=== PATIENT | male | born 1980 | race Caucasian/White ===

== ENCOUNTER → 2016-08-14 | Outpatient (CLI) | payer OTHER ==
[~2016-08-14] MED LIST: /CELE20CA PO; AUGM875T27 PO; BUSP30TA PO; CARV6.25 PO; CIPR500T89 PO; CYMB1CAP5 PO; CYMB60CA3 PO; HYDR-3713 PO; KLON0.5T PO; MELO15TA3 PO; METR1CAP PO; NAPR250T2 PO; NEUR600T PO; OXYCO5TA PO; TENO50TA PO; TRAZ100T2 PO; TYLE325T5 PO; TYLE650T30 PO; ULTR50TA PO; ZOLP-187 PO
== END | disposition home or self-care (01) ==
LOC: M SMT 11:25
PROVIDERS: ATTEND Obstetrics & Gynecology
DX: Z31.440 Encounter of male for testing for genetic disease carrier status for procreative management (principal)

== ENCOUNTER 2016-08-20 12:48 | Emergency (ER) | payer OTHER ==
--- NOTE | 2016-08-20 16:12 | EDDOCDS ---
Physician Documentation [facility] Name: Antonio Hernandez Age: 36 yrs Sex: Male : 1980 Arrival Date: 08/20/2016 Time: 12:48 Bed TR7 Private MD: Julisa Kingston A Disposition: 08/20/16 16:06 Discharged to Home/Self Care. Impression: Umbilical hernia with obstruction, without gangrene. - Condition is Stable. - Discharge Instructions: Hernia, Hernia Repair, Care After, [id number]. - Medication Reconciliation, Local Pharmacy Hours form. - Follow up: Raul Ortega MD; When: Call to arrange an appointment; Reason: Recheck today's complaints, Continuance of care. - Problem is new. - Symptoms are unchanged. Historical: - Allergies: no known allergies; - Home Meds: 1. alprazolam 0.5 mg Oral TbDL 1 tab daily PRN 2. buspirone 10 mg Oral tab 2 tabs 2 times per day 3. carvedilol 6.25 mg oral tab 1 tab 2 times per day 4. duloxetine 30 mg Oral cpDR 3 cap once daily 5. naproxen 500 mg Oral tab 1 tab every 12 hours - PMHx: Anxiety; Depression; Hypertension; PTSD; - PSHx: Arthroscopy, Knee- Right; Appendectomy; - Social history: Smoking status: Chewing Tobacco No barriers to communication noted, The patient speaks fluent Malagasy. - : The pt / caregiver states he / she is not on anticoagulants. Home medication list is obtained from the patient. - Exposure Risk Screening:: None identified. Vital Signs: 08/20 12:49 BP 166 / 105; Pulse 96; Resp 18 S; Temp 99.0(O); Pulse Ox 97% on R/A; Weight 131.54 kg gr2 / 290 lbs (R); Height 6 ft. 0 in. (182.88 cm) (R); Pain 3/10; 12:49 Body Mass Index 39.33 (131.54 kg, 182.88 cm) gr2 MDM: 16:11 Financial registration complete. gjb Signatures: Medina Garcia RN RN Juanita Llanos RN RN dls O'Hagan, Michael, PA PA mo1 Andre, Reyna gjb MTDD
--- NOTE | 2016-08-20 16:12 | EDDOCDS ---
Nurse's Notes [facility] Name: Antonio Hernandez Age: 36 yrs Sex: Male : 1980 Arrival Date: 08/20/2016 Time: 12:48 Bed TR7 Private MD: Julisa Kingston A Diagnosis: Umbilical hernia with obstruction, without gangrene Presentation: 08/20 13:01 Presenting complaint: Patient states: Pt presents with c/o possible umbilical hernia dls has noticed x 2 weeks today is painful. Risk factors: the patient reports not having a history of previous torsion. Adult Sepsis Screening: The patient does not have new or worsening altered mentation. Patient's respiratory rate is less than 22. Systolic blood pressure is greater than 100. Patient has a qSOFA score of 0- Negative Sepsis Screen. Suicide/Homicide risk assessment- the patient denies having any suicidal and/or homicidal ideations and does not present with any other emotional, behavioral or mental health complaints. Status: Patient is not a emergency service worker or dependent. Transition of care: patient was not received from another setting of care. 13:01 Acuity: [place] Level 4 dls 13:01 Method Of Arrival: Walkin/Carried/Asstd dls Triage Assessment: 13:03 General: Appears in no apparent distress, well developed, well nourished, well groomed, dls Behavior is cooperative. Pain: Pain currently is 2 out of 10 on a pain scale. HIV screening NA for this visit Offered previously. Historical: - Allergies: no known allergies; - Home Meds: 1. alprazolam 0.5 mg Oral TbDL 1 tab daily PRN 2. buspirone 10 mg Oral tab 2 tabs 2 times per day 3. carvedilol 6.25 mg oral tab 1 tab 2 times per day 4. duloxetine 30 mg Oral cpDR 3 cap once daily 5. naproxen 500 mg Oral tab 1 tab every 12 hours - PMHx: Anxiety; Depression; Hypertension; PTSD; - PSHx: Arthroscopy, Knee- Right; Appendectomy; - Social history: Smoking status: Chewing Tobacco No barriers to communication noted, The patient speaks fluent Ethiopian. - : The pt / caregiver states he / she is not on anticoagulants. Home medication list is obtained from the patient. - Exposure Risk Screening:: None identified. Vital Signs: 12:49 BP 166 / 105; Pulse 96; Resp 18 S; Temp 99.0(O); Pulse Ox 97% on R/A; Weight 131.54 kg gr2 (R); Height 6 ft. 0 in. (182.88 cm) (R); Pain 3/10; 12:49 Body Mass Index 39.33 (131.54 kg, 182.88 cm) gr2 Vitals: 12:49 Log In Time: August 20, 2016 at 12:49. gr2 ED Course: 12:49 Patient visited by Drea Landin. gr2 12:49 Julisa Kingston is Private Physician. gr2 12:49 Patient moved to Waiting gr2 12:51 Patient visited by Drea Landin. gr2 12:51 Patient moved to Pre RCE gr2 13:02 Triage Initiated dls 15:16 Patient moved to Triage 3 kcs 15:18 Patient visited by Enid Garcia RN. mk4 15:58 Hardik Saunders PA is PHCP. mo1 15:59 Arturo Du MD is Attending Physician. mo1 16:01 Patient visited by Hardik Saunders PA. mo1 16:06 Raul Ortega MD is Referral Physician. mo1 16:09 Patient moved to TR7 mk4 Order Results: There are currently no results for this order. Outcome: 16:06 Discharge ordered by Provider. mo1 16:12 Patient left the ED. kcs Signatures: Medina Garcia RN RN kcs Scott, Debra, RN RN [facility] Drea Landin gr2 Hardik Saunders PA PA mo1 Enid Garcia RN RN 4 MTDD
--- NOTE | 2016-08-22 17:13 | EDDOCDS ---
Nurse's Notes [facility] Name: Antonio Hernandez Age: 36 yrs Sex: Male : 1980 Arrival Date: 08/20/2016 Time: 12:48 Bed TR7 Private MD: Julisa Kingston A Diagnosis: Umbilical hernia with obstruction, without gangrene Presentation: 08/20 13:01 Presenting complaint: Patient states: Pt presents with c/o possible umbilical hernia dls has noticed x 2 weeks today is painful. Risk factors: the patient reports not having a history of previous torsion. Adult Sepsis Screening: The patient does not have new or worsening altered mentation. Patient's respiratory rate is less than 22. Systolic blood pressure is greater than 100. Patient has a qSOFA score of 0- Negative Sepsis Screen. Suicide/Homicide risk assessment- the patient denies having any suicidal and/or homicidal ideations and does not present with any other emotional, behavioral or mental health complaints. Status: Patient is not a pharmacy service associate or dependent. Transition of care: patient was not received from another setting of care. 13:01 Acuity: [place] Level 4 dls 13:01 Method Of Arrival: Walkin/Carried/Asstd dls Triage Assessment: 13:03 General: Appears in no apparent distress, well developed, well nourished, well groomed, dls Behavior is cooperative. Pain: Pain currently is 2 out of 10 on a pain scale. HIV screening NA for this visit Offered previously. Historical: - Allergies: no known allergies; - Home Meds: 1. alprazolam 0.5 mg Oral TbDL 1 tab daily PRN 2. buspirone 10 mg Oral tab 2 tabs 2 times per day 3. carvedilol 6.25 mg oral tab 1 tab 2 times per day 4. duloxetine 30 mg Oral cpDR 3 cap once daily 5. naproxen 500 mg Oral tab 1 tab every 12 hours - PMHx: Anxiety; Depression; Hypertension; PTSD; - PSHx: Arthroscopy, Knee- Right; Appendectomy; - Social history: Smoking status: Chewing Tobacco No barriers to communication noted, The patient speaks fluent Indian. - Family history: Not pertinent. - : The pt / caregiver states he / she is not on anticoagulants. Home medication list is obtained from the patient. - Exposure Risk Screening:: None identified. Screenin:10 Screening information is obtained from prior medical records. Fall risk: No risks kcs identified. Assistance ADL's: requires no assistance with activities of daily living. Abuse/DV Screen: The patient / caregiver reports he/she is: not in a situation that causes fear, pain or injury. Nutritional screening: No deficits noted. Advance Directives: Currently, there is no health care proxy. home support is adequate. Assessment: 16:10 Reassessment: Patient states symptoms have not improved. General: Appears comfortable, kcs well developed, well nourished, well groomed, Behavior is cooperative, pleasant. Pain: Location: abdomen. Neurological: Level of Consciousness is awake, alert. Respiratory: Airway is patent Respiratory effort is even, unlabored, Respiratory pattern is regular, symmetrical. Derm: Skin is intact, is healthy with good turgor, Skin is dry, Skin is normal. Vital Signs: 12:49 BP 166 / 105; Pulse 96; Resp 18 S; Temp 99.0(O); Pulse Ox 97% on R/A; Weight 131.54 kg gr2 (R); Height 6 ft. 0 in. (182.88 cm) (R); Pain 3/10; 12:49 Body Mass Index 39.33 (131.54 kg, 182.88 cm) gr2 Vitals: 12:49 Log In Time: August 20, 2016 at 12:49. gr2 ED Course: 12:49 Patient visited by Drea Landin. gr2 12:49 Julisa Kingston is Private Physician. gr2 12:49 Patient moved to Waiting gr2 12:51 Patient visited by Drea Landin. gr2 12:51 Patient moved to Pre RCE gr2 13:02 Triage Initiated dls 15:16 Patient moved to Triage 3 kcs 15:18 Patient visited by Enid Garcia RN. mk4 15:58 Hardik Saunders PA is PHCP. mo1 15:59 Arturo Du MD is Attending Physician. mo1 16:01 Patient visited by Hardik Saunders PA. mo1 16:06 Raul Ortega MD is Referral Physician. mo1 16:09 Patient moved to TR7 mk4 16:10 The patient / caregiver is instructed regarding the plan of care and ED course. kcs 16:10 No IV's were initiated during this patient's visit. No procedures done that require kcs assistance. 16:13 [facility] Payment Agreement was scanned into [employer] and attached to record. carolyne 08/21 09:18 T-Sheet-- Draft Copy was scanned into [employer] and attached to record. gb Order Results: There are currently no results for this order. Outcome: 08/20 16:06 Discharge ordered by Provider. mo1 16:10 Discharge Assessment: Patient awake, alert and oriented x 3. No cognitive and/or kcs functional deficits noted. Patient verbalized understanding of disposition instructions. Patient awake and alert. patient administered narcotics - no. The following High Risk Discharge criteria are identified: None. Discharged to home ambulatory, with significant other. Condition: stable. Discharge instructions given to patient, Instructed on discharge instructions, follow up and referral plans. Demonstrated understanding of instructions, Pt was receptive of discharge instructions/ teaching. No special radiology studies were completed. Property sent home with patient. 16:12 Patient left the ED. kcs Signatures: Medina Garcia, RN RN Juanita Llanos, RN RN dls Fatou Cano, Reg Reg gb Drea Landin gr2 Hardik Saunders PA PA mo1 Enid Garcia, RN RN Reyna Nichols Chart Complete MTDD
--- NOTE | 2016-08-22 17:13 | EDDOCDS ---
Physician Documentation [facility] Name: Antonio Hernandez Age: 36 yrs Sex: Male : 1980 Arrival Date: 08/20/2016 Time: 12:48 Bed TR7 Private MD: Julisa Kingston A Disposition: 08/20/16 16:06 Discharged to Home/Self Care. Impression: Umbilical hernia with obstruction, without gangrene. - Condition is Stable. - Discharge Instructions: Hernia, Hernia Repair, Care After, [id number]. - Medication Reconciliation, Local Pharmacy Hours form. - Follow up: Raul Ortega MD; When: Call to arrange an appointment; Reason: Recheck today's complaints, Continuance of care. - Problem is new. - Symptoms are unchanged. Historical: - Allergies: no known allergies; - Home Meds: 1. alprazolam 0.5 mg Oral TbDL 1 tab daily PRN 2. buspirone 10 mg Oral tab 2 tabs 2 times per day 3. carvedilol 6.25 mg oral tab 1 tab 2 times per day 4. duloxetine 30 mg Oral cpDR 3 cap once daily 5. naproxen 500 mg Oral tab 1 tab every 12 hours - PMHx: Anxiety; Depression; Hypertension; PTSD; - PSHx: Arthroscopy, Knee- Right; Appendectomy; - Social history: Smoking status: Chewing Tobacco No barriers to communication noted, The patient speaks fluent Austrian. - Family history: Not pertinent. - : The pt / caregiver states he / she is not on anticoagulants. Home medication list is obtained from the patient. - Exposure Risk Screening:: None identified. Vital Signs: 08/20 12:49 BP 166 / 105; Pulse 96; Resp 18 S; Temp 99.0(O); Pulse Ox 97% on R/A; Weight 131.54 kg gr2 / 290 lbs (R); Height 6 ft. 0 in. (182.88 cm) (R); Pain 3/10; 12:49 Body Mass Index 39.33 (131.54 kg, 182.88 cm) gr2 MDM: 16:11 Financial registration complete. [facility] 16:13 [facility] Payment Agreement was scanned into [employer] and attached to record. [facility] 08/21 09:18 T-Sheet-- Draft Copy was scanned into [employer] and attached to record. gb Signatures: Medina Garcia RN RN Juanita Llanos RN RN dls Fatou Cano, Rudy Reg gb Hardik Saunders PA PA mo1 Reyna Andre The chart was reviewed and I authenticate all verbal orders and agree with the evaluation and treatment provided.Attachments: 08/20 16:13 [facility] [place] Payment Agreement gjb 08/21 09:18 T-Sheet-- Draft Copy gb Chart Complete MTDD
--- NOTE | 2016-08-22 17:13 | EDDOCDS ---
Physician Documentation [facility] Name: Antonio Hernandez Age: 36 yrs Sex: Male : 1980 Arrival Date: 08/20/2016 Time: 12:48 Bed TR7 Private MD: Julisa Kingston A Disposition: 08/20/16 16:06 Discharged to Home/Self Care. Impression: Umbilical hernia with obstruction, without gangrene. - Condition is Stable. - Discharge Instructions: Hernia, Hernia Repair, Care After, [id number]. - Medication Reconciliation, Local Pharmacy Hours form. - Follow up: Raul Ortega MD; When: Call to arrange an appointment; Reason: Recheck today's complaints, Continuance of care. - Problem is new. - Symptoms are unchanged. Historical: - Allergies: no known allergies; - Home Meds: 1. alprazolam 0.5 mg Oral TbDL 1 tab daily PRN 2. buspirone 10 mg Oral tab 2 tabs 2 times per day 3. carvedilol 6.25 mg oral tab 1 tab 2 times per day 4. duloxetine 30 mg Oral cpDR 3 cap once daily 5. naproxen 500 mg Oral tab 1 tab every 12 hours - PMHx: Anxiety; Depression; Hypertension; PTSD; - PSHx: Arthroscopy, Knee- Right; Appendectomy; - Social history: Smoking status: Chewing Tobacco No barriers to communication noted, The patient speaks fluent Somali. - Family history: Not pertinent. - : The pt / caregiver states he / she is not on anticoagulants. Home medication list is obtained from the patient. - Exposure Risk Screening:: None identified. Vital Signs: 08/20 12:49 BP 166 / 105; Pulse 96; Resp 18 S; Temp 99.0(O); Pulse Ox 97% on R/A; Weight 131.54 kg gr2 / 290 lbs (R); Height 6 ft. 0 in. (182.88 cm) (R); Pain 3/10; 12:49 Body Mass Index 39.33 (131.54 kg, 182.88 cm) gr2 MDM: 16:11 Financial registration complete. [facility] 16:13 [facility] Payment Agreement was scanned into [employer] and attached to record. [facility] 08/21 09:18 T-Sheet-- Draft Copy was scanned into [employer] and attached to record. gb Signatures: Medina Garcia RN RN Juanita Llanos RN RN dls Fatou Cano, Rudy Reg gb Hardik Saunders PA PA mo1 Reyna Andre The chart was reviewed and I authenticate all verbal orders and agree with the evaluation and treatment provided.Attachments: 08/20 16:13 [facility] Payment Agreement gjb 08/21 09:18 T-Sheet-- Draft Copy gb Chart Complete MTDD
== END 2016-08-20 16:12 | disposition home or self-care (01) ==
LOC: M ED 12:48
DX: K42.9 Umbilical hernia without obstruction or gangrene (principal); I10 Essential (primary) hypertension; F32.9 Major depressive disorder, single episode, unspecified; F43.10 Post-traumatic stress disorder, unspecified; F41.9 Anxiety disorder, unspecified; Z79.899 Other long term (current) drug therapy; F17.220 Nicotine dependence, chewing tobacco, uncomplicated

== ENCOUNTER → 2016-09-14 | Day surgery (SDC) | payer OTHER ==
[~2016-09-14] VITALS: Ht 182.9 cm; Wt 138.3 kg
[~2016-09-14] MED LIST changes: +BUPIVACAINE/EPIN 0.25% 30 ML VIAL As Ordered ONE; +BUSP10TA PO; +CLON0.5T PO; +GLYCOPYRROLATE INJ 0.2 MG/ML 2 ML VIAL As Ordered ONE; +HYDROmorphone HCL 1 MG/ML SYRINGE (J1170) IV PRN; +HYDROmorphone HCL 2 MG/ML 1ML VIAL (J1170) As Ordered ONE; +LIDOCAINE 2% INJ 100 MG/5 ML SDV (FOR ANES.) As Ordered ONE; +LR 1,000 ML IV SCH; +MIDAZOLAM INJ 2 MG/2 ML VIAL (J2250) As Ordered ONE; +NAPR500T2 PO; +NEOSTIGMINE 1MG/ML 5 ML SYRINGE (J2710) As Ordered ONE; +NORCO, ANEXSIA 5/325MG TABLET (HYDROcodone/ACETAMINOPHEN) PO PRN; +ONDANSETRON 4MG/2ML VIAL (J2405) As Ordered ONE; +ONDANSETRON 4MG/2ML VIAL (J2405) IV PRN; +PERCOCET 5MG/325MG TAB As Ordered ONE; +PROPOFOL 200 MG/20 ML VIAL As Ordered ONE; +ROCURONIUM BROMIDE 50 MG/5 ML VIAL As Ordered ONE; +dexameTHASONE 4 MG/ML 1ML VIAL (J1100) As Ordered ONE; +fentaNYL 100 MCG/2 ML INJECTION (J3010) As Ordered ONE; +fentaNYL 100 MCG/2 ML INJECTION (J3010) IV PRN
[2016-09-14 08:21] LABS: MEAN CORPUSCULAR HEMOGLOBIN 31.3 pg (27.0-33.0); MEAN CORPUSCULAR HGB CONC 33.4 g/dl (32.0-36.5); MEAN CORPUSCULAR VOLUME 93.5 fl (80.0-96.0); RED CELL DISTRIBUTION WIDTH 12.4 % (11.5-14.5); WHITE BLOOD COUNT 5.2 K/mm3 (4.0-10.0)
[2016-09-14 08:44] LABS: ANION GAP 9 MEQ/L (8-16); BLOOD UREA NITROGEN 15 MG/DL (7-18); CALCIUM LEVEL 8.7 MG/DL (8.5-10.1); CARBON DIOXIDE LEVEL 29 MEQ/L (21-32); CHLORIDE LEVEL 104 MEQ/L (98-107); CREATININE FOR GFR 1.05 MG/DL (0.70-1.30); GLOMERULAR FILTRATION RATE > 60.0 (>60); GLUCOSE, FASTING 110 MG/DL (70-105); POTASSIUM SERUM 4.4 MEQ/L (3.5-5.1); SODIUM LEVEL 142 MEQ/L (136-145)
--- NOTE | 2016-09-14 10:01 | ECGEPIP ---
Stationary ECG Study [facility] Test Date: 2016-09-14 Pat Name: TANVIR VELÁSQUEZ Department: Room: - Gender: M Supervisor [place]: [facility] : 1980 Requested By: Mendez Bennett Order Number: [id number] Reading MD: Thalia Medrano Measurements Intervals Wann Rate: 79 P: 19 WY: 170 QRS: 0 QRSD: 96 T: -5 QT: 353 QTc: 405 Interpretive Statements SINUS RHYTHM MINIMAL VOLTAGE CRITERIA FOR LVH, CONSIDER NORMAL VARIANT similar to 10/18/15 Electronically Signed On 09-14-2016 10:00:56 EST by Thalia Medrano
[2016-09-14] MEDS: PERCOCET 5MG/325MG TAB PO PRN ×2 (14:04→15:09)
[2016-09-14 16:00] VITALS: BP 145/84
--- NOTE | 2016-09-16 10:56 | RO ---
DATE OF PROCEDURE: 09/14/2016 PREPROCEDURE DIAGNOSIS: Incarcerated umbilical hernia. POSTOPERATIVE DIAGNOSIS: Incarcerated umbilical hernia. PROCEDURE: Robotic-assisted incarcerated umbilical hernia repair with mesh. SURGEON: Dr. Byrnes CONDITIONER TENDER: Dr. Ortega ANESTHESIA: General. ESTIMATED BLOOD LOSS: 5 COMPLICATIONS: None. INDICATIONS FOR PROCEDURE: The patient is a 36-year-old male who presents with a large lump and tenderness at his umbilicus. He was found to have large umbilical hernia. Recommendation was to proceed with laparoscopic, possible open repair. Risks of the procedure, not limited to, but including bleeding, infection, hernia recurrence, hernia formation of the port sites, damage to surrounding structures, need for further surgery were discussed in detail with the patient. Informed was obtained procedure was planned. PROCEDURE: The patient brought back to operating room 7. After sufficient sedation, the abdomen was sterilely prepped and draped. Next, a time-out was done confirm proper patient and proper procedure. Following that, a 12 mm incision made in left upper quadrant, Veress needle was inserted and the abdomen was insufflated to 15 mmHg. Next, a 12 mm OptiView port was used to gain access the abdomen. Once the abdomen was entered, two more 8 mm da Savita ports were placed on the left lateral abdominal wall under direct visualization. Next, the robot was docked to these three ports. Once that was completed, using blunt dissection, the hernia contents were reduced from the hernia sac. Then using sharp dissection, the hernia sac was carefully excised and removed as a specimen. Next, using an #0 Vicryl suture with two interrupted sutures, the defect in the abdominal wall was closed under direct visualization and closed primarily. Once that was completed. The 11.4 cm Echo mesh was placed and centered over top of the defect using a #2-0 V-loc suture in a running baseball fashion. The entire perimeter of the mesh was sutured to the abdominal wall in one continuous suture. Once this was completed, the needle was cut. The needle was removed. The balloon was taken off of the mesh and brought out through port site. The abdomen was then desufflated, ports were removed. Fascia at the left upper quadrant 12 mm port site was closed with an 0 Vicryl [id number] suture. Skin incision closed with #4-0 Vicryl subcuticular sutures. The abdomen was cleaned and dried. Steri-Strips, 4x4 and tape were applied, thus ending procedure.
== END ==
LOC: M SDC 07:36
PROVIDERS: ATTEND Surgery
DX: K42.0 Umbilical hernia with obstruction, without gangrene (principal); I10 Essential (primary) hypertension; F32.9 Major depressive disorder, single episode, unspecified; F41.9 Anxiety disorder, unspecified; M54.9 Dorsalgia, unspecified; M17.0 Bilateral primary osteoarthritis of knee; M16.0 Bilateral primary osteoarthritis of hip; F43.10 Post-traumatic stress disorder, unspecified; F17.220 Nicotine dependence, chewing tobacco, uncomplicated; Z79.899 Other long term (current) drug therapy; Z79.1 Long term (current) use of non-steroidal anti-inflammatories (NSAID)
CPT/HCPCS: 36415; 49652; 80048; 85027; 88302; 93005; C1781; J0690; J1100; J1170; J2250; J2405; J2710; J3010

== ENCOUNTER 2016-11-28 15:21 | Emergency (ER) | payer OTHER ==
[~2016-11-28] VITALS: Ht 182.9 cm; Wt 131.5 kg
[~2016-11-28 15:21] MED LIST changes: -BUPIVACAINE/EPIN 0.25% 30 ML VIAL As Ordered ONE; -GLYCOPYRROLATE INJ 0.2 MG/ML 2 ML VIAL As Ordered ONE; -HYDROmorphone HCL 1 MG/ML SYRINGE (J1170) IV PRN; -HYDROmorphone HCL 2 MG/ML 1ML VIAL (J1170) As Ordered ONE; -LIDOCAINE 2% INJ 100 MG/5 ML SDV (FOR ANES.) As Ordered ONE; -LR 1,000 ML IV SCH; -MIDAZOLAM INJ 2 MG/2 ML VIAL (J2250) As Ordered ONE; -NEOSTIGMINE 1MG/ML 5 ML SYRINGE (J2710) As Ordered ONE; -NORCO, ANEXSIA 5/325MG TABLET (HYDROcodone/ACETAMINOPHEN) PO PRN; -ONDANSETRON 4MG/2ML VIAL (J2405) As Ordered ONE; -ONDANSETRON 4MG/2ML VIAL (J2405) IV PRN; -PERCOCET 5MG/325MG TAB As Ordered ONE; -PROPOFOL 200 MG/20 ML VIAL As Ordered ONE; -ROCURONIUM BROMIDE 50 MG/5 ML VIAL As Ordered ONE; -dexameTHASONE 4 MG/ML 1ML VIAL (J1100) As Ordered ONE; -fentaNYL 100 MCG/2 ML INJECTION (J3010) As Ordered ONE; -fentaNYL 100 MCG/2 ML INJECTION (J3010) IV PRN
[2016-11-28] MEDS ORDERED: WELLTAB38 PO (15:37)
--- NOTE | 2016-11-28 16:32 | REP ---
Clinical: Left-sided abdominal pain. Technique: Upright view of the chest with supine and upright views of the abdomen and pelvis. Findings: Frontal upright view of the chest demonstrates no acute cardiopulmonary process or free air below the diaphragm to suspect pneumoperitoneum. Supine and upright views of the abdomen and pelvis demonstrate nonspecific bowel gas pattern without obstruction or perforation. No organomegaly. No abnormal calcifications. Skeletal structures normal for age. Impression: Nonspecific bowel gas pattern. Signed by Munir Poon MD 11/28/2016 04:23 P
[2016-11-28 16:40] LABS: BASO # 0.1 K/mm3 (0.0-0.2); BASO % 0.8 % (0.0-1.0); EOS # 0.2 K/mm3 (0.0-0.50); EOS % 2.7 % (0.0-3.0); LARGE UNSTAINED CELL # 0.1 K/mm3 (0.0-0.4); LARGE UNSTAINED CELL % 2.1 % (0.0-4.0); LYMPH # 1.5 K/mm3 (1.5-4.5); LYMPH % 19.4 % (24.0-44.0); MEAN CORPUSCULAR HEMOGLOBIN 31.8 pg (27.0-33.0); MEAN CORPUSCULAR HGB CONC 34.1 g/dl (32.0-36.5); MEAN CORPUSCULAR VOLUME 93.3 fl (80.0-96.0); MONO # 0.4 K/mm3 (0.0-0.8); NEUTROPHILS # 4.7 K/mm3 (1.8-7.7); NEUTROPHILS % 68.9 % (36.0-66.0); PLATELET COUNT, AUTOMATED 241 k/mm3 (150-450); RED CELL DISTRIBUTION WIDTH 12.7 % (11.5-14.5); WHITE BLOOD COUNT 6.8 K/mm3 (4.0-10.0)
[2016-11-28 17:06] LABS: ALBUMIN 3.8 GM/DL (3.2-5.2); ALBUMIN/GLOBULIN RATIO 0.97 (1.00-1.93); ALKALINE PHOSPHATASE 56 U/L (45-117); ALT/SGPT 120 U/L (12-78); AMYLASE 28 U/L (25-115); ANION GAP 6 MEQ/L (8-16); AST/SGOT 61 U/L (15-37); BILIRUBIN,DIRECT < 0.1 MG/DL (0.0-0.2); BILIRUBIN,TOTAL 0.4 MG/DL (0.2-1.0); BLOOD UREA NITROGEN 16 MG/DL (7-18); CALCIUM LEVEL 9.2 MG/DL (8.5-10.1); CARBON DIOXIDE LEVEL 28 MEQ/L (21-32); CHLORIDE LEVEL 105 MEQ/L (98-107); CREATININE FOR GFR 1.03 MG/DL (0.70-1.30); GLOMERULAR FILTRATION RATE > 60.0 (>60); GLUCOSE, FASTING 100 MG/DL (70-105); POTASSIUM SERUM 4.6 MEQ/L (3.5-5.1); SODIUM LEVEL 139 MEQ/L (136-145); TOTAL PROTEIN 7.7 GM/DL (6.4-8.2)
--- NOTE | 2016-11-28 17:07 | REP ---
Clinical: Left upper quadrant pain. Technique: Real time vu scale ultrasound examination using curved array transducer. Findings: The spleen is essentially normal in contour, size, echogenicity measuring 12.6 x 4.9 x 10.5 cm and without significant splenic abnormality. Small parenchymal calcifications suggest prior granulomatous disease. The left kidney is relatively normal in reniform shape without hydronephrosis and measures 11.0 x 6.3 x 5.6 cm and without cyst or renal mass lesion or significant nephrolithiasis; 2 mm nonobstructing left renal calculus cannot be excluded. No ascites in the visualized left upper quadrant. Impression: Essentially normal spleen and left kidney. Small 2 - 3 mm nonobstructing left lower pole renal calculus cannot be excluded. Signed by Munir Poon MD 11/28/2016 04:58 P
[2016-11-28 17:36] VITALS: BP 197/105
== END 2016-11-28 17:38 | disposition home or self-care (01) ==
LOC: M ED 17:34
DX: R10.12 Left upper quadrant pain (principal); R93.5 Abnormal findings on diagnostic imaging of other abdominal regions, including retroperitoneum; F43.10 Post-traumatic stress disorder, unspecified; G47.30 Sleep apnea, unspecified; F17.200 Nicotine dependence, unspecified, uncomplicated; Z79.899 Other long term (current) drug therapy

== ENCOUNTER 2017-03-06 20:04 | Emergency (ER) | payer OTHER ==
[~2017-03-06] VITALS: Ht 182.9 cm; Wt 134.0 kg
[~2017-03-06 20:04] MED LIST changes: -AUGM875T27 PO; +AUGM875T28 PO; +CIPR-249 PO; -CIPR500T89 PO; -NAPR250T2 PO; +NAPR250T4 PO; -NAPR500T2 PO; +NAPR500T3 PO; +WELLTAB38 PO
[2017-03-06] MEDS ORDERED: GI COCKTAIL 50ML BTL(HYOSCYAMINE/MAALOX/LIDOCAINE VISCOUS)(1:3:1) PO ONE (20:30)
[2017-03-06] MEDS ORDERED: PRIL20CA9 PO (21:04)
[2017-03-06 21:18] VITALS: BP 172/98
== END 2017-03-06 21:19 | disposition home or self-care (01) ==
LOC: M ED 20:04
DX: K21.0 Gastro-esophageal reflux disease with esophagitis (principal); F33.9 Major depressive disorder, recurrent, unspecified; F41.9 Anxiety disorder, unspecified; F43.10 Post-traumatic stress disorder, unspecified; Z79.899 Other long term (current) drug therapy

== ENCOUNTER → 2017-04-15 | Outpatient (CLI) | payer OTHER ==
[~2017-04-15] MED LIST changes: +PRIL20CA9 PO
--- NOTE | 2017-04-16 01:44 | REP ---
Clinical: Pain. Technique: AP, lateral, bilateral oblique views of the left foot. Findings: No acute fracture dislocation. Osseous structures, joint spaces, and surrounding soft tissues appear normal. No significant, overt arthritic degenerative changes are appreciated. No subcutaneous emphysema or radiodense foreign body. Impression: Normal, age-appropriate left foot radiographs. Signed by Munir Poon MD 04/16/2017 01:36 A
== END ==
LOC: M SMT 10:25
PROVIDERS: ATTEND Physician Assistant Medical
DX: M25.572 Pain in left ankle and joints of left foot (principal)

== ENCOUNTER → 2017-11-20 | Outpatient (CLI) | payer OTHER ==
[~2017-11-20] MED LIST changes: -/CELE20CA PO; -AUGM875T28 PO; -BUSP10TA PO; -BUSP30TA PO; -CARV6.25 PO; -CIPR-249 PO; -CLON0.5T PO; -CYMB1CAP5 PO; -CYMB60CA3 PO; +GASTROGRAFIN SOLUTION 30ML (Q9963) As Ordered; -HYDR-3713 PO; +ISOVUE-370 76% 100ML VIAL (Q9967) As Ordered; -KLON0.5T PO; -MELO15TA3 PO; -METR1CAP PO; -NAPR250T4 PO; -NAPR500T3 PO; -NEUR600T PO; -OXYCO5TA PO; -PRIL20CA9 PO; -TENO50TA PO; -TRAZ100T2 PO; -TYLE325T5 PO; -TYLE650T30 PO; -ULTR50TA PO; -WELLTAB38 PO; -ZOLP-187 PO
== END ==
LOC: M RAD 15:15
DX: K42.0 Umbilical hernia with obstruction, without gangrene (principal)
CPT/HCPCS: Q9963